=== PATIENT | male | born 1960 | race Caucasian/White ===

== ENCOUNTER 2016-08-08 19:59 | Emergency (ER) | payer OTHER ==
[~2016-08-08] VITALS: Ht 177.8 cm; Wt 74.8 kg
--- NOTE | ~2016-08-08 | EKG ---
[address] [address] ELECTROCARDIOGRAM REPORT Name: SHENA BLEDSOE [facility] [id number] Admission: 08/08/16 Attend Phys: Discharge: 08/08/16 Date of : 62 Report #: [id number] THIS REPORT FOR: //name// [facility] ED Test Date: 2016-08-08 Test Time: 20:06:50 Pat Name: SHENA BLEDSOE Department: Room: Gender: M [employer]itcher: JAKE : 1960 Requested By: Akosua Umaña Order Number: [id number] MD: Nacho Mccoy Measurements Intervals [place] Rate: 112 P: 75 MO: 149 QRS: 85 QRSD: 101 T: 39 QT: 323 QTc: 441 Interpretive Statements Sinus tachycardia Otherwise no significant abnormality No previous ECG available for comparison Electronically Signed On 08-09-2016 9:05:06 [employer] MARGARINE by Nacho Mccoy [email or web address] <ELECTRONICALLY SIGNED> By: Nacho Mccoy MD, [facility] 08/09/16 0905 05 05 Nacho Mccoy MD, FACC /EPI
[~2016-08-08 19:59] MED LIST: NAPROSYN500 MG PO; NORCO 5-325 TA1 EACH PO
[2016-08-08] MEDS ORDERED: LIPITOR 20 MG T20 M1 PO (20:09)
[2016-08-08] MEDS ORDERED: LANSOPRAZOLE30 MG PO (20:09)
[2016-08-08 20:28] LABS: HEMATOCRIT 42.3 % (42.0-52.0); HEMOGLOBIN 15.1 gm/dL (14.0-18.0); MCH 31.2 pg (26.0-34.0); MCHC 35.8 % (28.0-37.0); MCV 87.2 fL (80.0-100.0); PLATELET COUNT 181 thou/uL (150-400); RBC 4.85 mil/uL (4.50-6.00); RDW 12.4 % (10.5-14.5); WBC 6.9 thou/uL (4.0-11.0)
[2016-08-08 20:32] LABS: ANION GAP 7 mmol/L (7-16); BUN 12 mg/dL (7-18); CHLORIDE 104 mmol/L (98-107); CO2 28 mmol/L (21-32); GLUCOSE 102 mg/dL (70-99); POTASSIUM 3.5 mmol/L (3.5-5.1); SODIUM 139 mmol/L (136-145)
[2016-08-08 20:33] LABS: MANUAL DIFF YES
[2016-08-08 20:43] LABS: ALBUMIN 4.1 g/dL (3.4-5.0); ALKALINE PHOSPHATASE 111 U/L (46-116); SGOT 17 U/L (15-37); SGPT 38 U/L (30-65); TOTAL BILIRUBIN 0.8 mg/dL (<0.1-1.0); TOTAL PROTEIN 7.5 g/dL (6.4-8.2); TROPONIN-I < 0.04 ng/mL (<0.04-0.07)
[2016-08-08 20:54] LABS: ABSOLUTE NEUTROPHILS 4.8 thou/uL (1.4-8.2); TOTAL CELL COUNT 100
[2016-08-08 22:40] VITALS: BP 105/70
== END 2016-08-08 22:43 | disposition home or self-care (01) ==
LOC: ER 19:59
PROVIDERS: Physician Assistant
DX: B34.9 Viral infection, unspecified (principal); R00.0 Tachycardia, unspecified; K21.9 Gastro-esophageal reflux disease without esophagitis; Z88.2 Allergy status to sulfonamides

== ENCOUNTER → 2016-12-30 | Outpatient (CLI) | payer OTHER ==
[~2016-12-30] MED LIST changes: +LANSOPRAZOLE30 MG PO; +LIPITOR 20 MG T20 M1 PO
== END ==
LOC: CAT 10:22
DX: E78.5 Hyperlipidemia, unspecified (principal)

== ENCOUNTER → 2018-07-25 | Outpatient (CLI) | payer OTHER | LOC: RAD 14:32 | DX: R06.09 Other forms of dyspnea (principal) ==

== ENCOUNTER → 2019-08-08 | Outpatient (CLI) | payer OTHER | LOC: SJCVC 11:39 | DX: R06.02 Shortness of breath (principal); R07.9 Chest pain, unspecified; E78.1 Pure hyperglyceridemia; Z82.49 Family history of ischemic heart disease and other diseases of the circulatory system; Z79.82 Long term (current) use of aspirin; Z79.899 Other long term (current) drug therapy ==

== ENCOUNTER → 2019-08-16 | Outpatient (CLI) | payer OTHER | LOC: SJCVCIMAG 15:31 | DX: R06.02 Shortness of breath (principal); R07.9 Chest pain, unspecified; E78.1 Pure hyperglyceridemia; E78.5 Hyperlipidemia, unspecified ==

== ENCOUNTER → 2020-08-04 | Outpatient (CLI) | payer OTHER | LOC: CAT 09:28 | PROVIDERS: ATTEND Internal Medicine | DX: K42.9 Umbilical hernia without obstruction or gangrene (principal); R31.9 Hematuria, unspecified ==

== ENCOUNTER → 2020-08-06 | Outpatient (CLI) | payer OTHER | LOC: SJCVC 12:12 | PROVIDERS: ATTEND Internal Medicine Cardiovascular Disease | DX: R93.1 Abnormal findings on diagnostic imaging of heart and coronary circulation (principal); E78.5 Hyperlipidemia, unspecified; Z72.89 Other problems related to lifestyle; Z79.899 Other long term (current) drug therapy; Z79.82 Long term (current) use of aspirin; Z82.49 Family history of ischemic heart disease and other diseases of the circulatory system; Z88.2 Allergy status to sulfonamides ==

== ENCOUNTER → 2021-08-23 | Outpatient (CLI) | payer OTHER | LOC: SJCVCIMAG 10:52 | PROVIDERS: ATTEND Internal Medicine Cardiovascular Disease | DX: Z13.6 Encounter for screening for cardiovascular disorders (principal) ==